=== PATIENT | female | born 1995 | race Caucasian/White ===

== ENCOUNTER 2017-12-23 22:53 | Emergency (ER) | payer BC, MEDICAID ==
[~2017-12-23] VITALS: Ht 160 cm; Wt 117.1 kg
[~2017-12-23 22:53] MED LIST: AMBIEN10 MG PO; ATARAX 10MG10 MG/TAB PO; BENZTROPINE ME0.5 MG PO; BRINTELLIX20 MG PO; BUPROPRION PO; CONCERTA36 MG PO; CYPROHEPTADINE4 MG PO; DEPAKOTE125 MG; DEPAKOTE250 MG PO; ESCITALOPRAM; GEODON20 MG PO; GEODON40 MG PO; GEODON80 MG PO; HALDOL 5MG T5 MG/TAB PO; HYDROXYYZINE PA25 MG PO; LATUDA40 MG PO; LEXAPRO20 MG PO; SEROQUEL 2525 MG/TAB PO; SPRINTEC 35 MCG1 TAB PO; TRAZODONE150 MG PO; WELLBUTRIN XL300 M1 PO
[2017-12-23] MEDS ORDERED: ABILIFY5 MG PO (23:10)
[2017-12-24 00:17] LABS: BASO # 0.1 (0.02-0.10); EOS # 0.2 (0.04-0.40); EOS % 1.4 % (1.0-5.0); HEMATOCRIT 40.3 % (37.0-47.0); HEMOGLOBIN 13.2 g/dL (12.5-16.0); LYMPH# 2.8 (1.50-4.00); MEAN CELL VOLUME 89 fl (78-100); MEAN CORPUSCULAR HEMOGLOBIN 29 pg (27-31); MEAN CORPUSCULAR HGB CONC 33 g/dL (33-37); MEAN PLATELET VOLUME 10.6 fl (7.4-10.4); MONO # 0.8 (0.20-0.80); NEU # 7.3 (1.40-6.50); PLATELET COUNT 345 K/mm3 (130-400); RED BLOOD COUNT 4.55 M/mm3 (4.10-5.30); RED CELL DISTRIBUTION WIDTH 12.7 % (11.5-14.5); WHITE BLOOD COUNT 11.1 K/mm3 (4.8-10.8)
[2017-12-24 00:25] LABS: URINE APPEARANCE CLEAR; URINE BILIRUBIN NEGATIVE (NEGATIVE); URINE BLOOD NEGATIVE (NEGATIVE); URINE COLOR STRAW; URINE GLUCOSE NEGATIVE (NEGATIVE); URINE KETONE NEGATIVE (NEGATIVE); URINE LEUKOCYTE ESTERASE NEGATIVE (NEGATIVE); URINE NITRATE NEGATIVE (NEGATIVE); URINE PROTEIN(semi-quant) NEGATIVE (NEGATIVE); URINE UROBILINOGEN NORMAL (NORMAL); URINE WBC 0-1 /hpf (0-3)
[2017-12-24 00:55] VITALS: BP 117/51
== END 2017-12-24 01:00 | disposition home or self-care (01) ==
LOC: ED 22:53
PROVIDERS: Family Medicine
DX: M54.5 Low back pain (principal); F31.9 Bipolar disorder, unspecified; R30.0 Dysuria; K59.00 Constipation, unspecified; R20.0 Anesthesia of skin; R53.83 Other fatigue

== ENCOUNTER 2018-04-06 17:18 | Emergency (ER) | payer MEDICAID ==
[~2018-04-06] VITALS: Ht 160 cm; Wt 117.3 kg
[~2018-04-06 17:18] MED LIST changes: +ABILIFY5 MG PO
[2018-04-06] MEDS ORDERED: MORGIDOX 1X100100 MG PO (17:27)
[2018-04-06] MEDS ORDERED: CLEOCIN HC150 MG/CAP PO (18:33)
[2018-04-06 18:49] VITALS: BP 168/89
== END 2018-04-06 18:43 | disposition home or self-care (01) ==
LOC: ED 17:18
DX: K04.7 Periapical abscess without sinus (principal)

== ENCOUNTER 2018-11-20 13:11 | Emergency (ER) | payer BC, MEDICAID ==
[~2018-11-20] VITALS: Ht 160 cm; Wt 112.3 kg
[~2018-11-20 13:11] MED LIST changes: +CLEOCIN HC150 MG/CAP PO; +MORGIDOX 1X100100 MG PO
[2018-11-20 16:43] VITALS: BP 128/82
== END 2018-11-20 16:43 | disposition home or self-care (01) ==
LOC: ED 13:11
DX: R11.2 Nausea with vomiting, unspecified (principal); R53.81 Other malaise; Z88.1 Allergy status to other antibiotic agents; Z88.0 Allergy status to penicillin; Z88.8 Allergy status to other drugs, medicaments and biological substances
CPT/HCPCS: J2405; J2550; J7120